=== PATIENT | female | born 1950 | race Two or more races ===

== ENCOUNTER → 2018-03-22 14:26 | Outpatient (CLI) | payer MEDICARE, SELFPAY ==
[2018-03-26 14:23] LABS: HPV Reflexed? NOT INDICATED
== END ==
PROVIDERS: Family Provider Obstetrics & Gynecology; Visit Provider Obstetrics & Gynecology
DX: Z12.4 Encounter for screening for malignant neoplasm of cervix (principal)
CPT/HCPCS: 88175; G0145